=== PATIENT | male | born 1970 | race Caucasian/White ===

== ENCOUNTER 2023-09-18 10:55 | Outpatient (OUT) | payer OTHER, SELFPAY ==
--- NOTE | 2023-09-18 11:02 | XR_ITS ---
The [address] [address] Patient Name: DENISE CALLAHAN MRN: [id number] date: 1970 Sex: M Assigned Patient Location: [facility] Current Patient Location: Accession/Order Number: [id number] Exam Date: 09/18/2023 11:10 Report Date: 09/20/2023 10:10 At the request of: BHAVANI SCHOFIELD Procedure: XR shoulder RT min 2V PROCEDURE: XR shoulder RT min 2V HISTORY: CHRONIC RIGHT SHOULDER PAIN M25.511, G89.29 COMPARISON: None. FINDINGS: BONES:No fracture, acute abnormality, or significant arthropathy. SOFT TISSUES:No visible soft tissue swelling. EFFUSION:None visible. OTHER: Dense calcification within right lung favoring a chronic granuloma. XR/XR shoulder RT min 2V IMPRESSION: 1. No acute bone abnormality or significant degenerative joint disease of the right shoulder. Consider MRI for evaluation of possible soft tissue injury if symptoms persist. Electronically authenticated by: GUY CYR Date: 09/20/2023 10:10
== END 2023-09-18 10:56 | disposition home or self-care (01) ==
LOC: RAD 10:55
PROVIDERS: PCP Nurse Practitioner Family; Visit Provider Nurse Practitioner Family
DX: M25.511 Pain in right shoulder (principal); G89.29 Other chronic pain
CPT/HCPCS: 73030